=== PATIENT | female | born 1940 ===

== ENCOUNTER 2020-11-21 15:43 | Emergency (ER) | payer MEDICARE ==
[~2020-11-21] VITALS: Ht 160 cm; Wt 113.6 kg
[2020-11-21] MEDS ORDERED: ALBU83IN NEB (15:57)
[2020-11-21] MEDS ORDERED: GLIM1TAB4 PO (15:57)
[2020-11-21] MEDS ORDERED: AZIT-12 PO (15:57)
[2020-11-21] MEDS ORDERED: [UNRECOGNIZED DRUG - CODE] PO (15:57)
--- NOTE | 2020-11-21 16:31 | REP ---
INDICATION: Coronavirus workup. COMPARISON: No comparison study. TECHNIQUE: Portable upright AP chest radiograph. FINDINGS: The patient is rotated slightly to the right. Monitoring electrodes are seen. The heart is not enlarged. The aorta is calcific and slightly tortuous. Pulmonary vasculature is not increased. No infiltrate is seen. Pleural angles are sharp. No acute bony abnormality.. IMPRESSION: No active disease. <Electronically signed by Eloy Tracy > 11/21/20 [id number]
[2020-11-21 16:48] LABS: BASO % 0.4 % (0.0-1.0); EOS % 0.4 % (0.0-3.0); HEMATOCRIT 37.5 % (36.0-47.0); HEMOGLOBIN 11.9 g/dl (12.0-15.5); LYMPH % 21.6 % (24.0-44.0); MEAN CORPUSCULAR HEMOGLOBIN 28.7 pg (27.0-33.0); MEAN CORPUSCULAR HGB CONC 31.7 g/dl (32.0-36.5); MEAN CORPUSCULAR VOLUME 90.6 fl (80.0-96.0); MONO # 0.6 10^3/uL (0.0-0.8); MONO % 11.9 % (2.0-8.0); NEUTROPHILS # 3.1 10^3/uL (1.5-8.5); NEUTROPHILS % 64.5 % (36.0-66.0); PLATELET COUNT, AUTOMATED 162 10^3/uL (150-450); RED BLOOD COUNT 4.14 10^6/uL (4.00-5.40); WHITE BLOOD COUNT 4.8 10^3/uL (4.0-10.0)
[2020-11-21] MEDS ORDERED: oxygen (16:51)
[2020-11-21] MEDS ORDERED: NS 1,000 ML IV SCH (17:10)
[2020-11-21 17:11] LABS: INR 0.98; PROTHROMBIN TIME 13.2 SECONDS (12.5-14.3)
[2020-11-21 17:12] LABS: PARTIAL THROMBOPLASTIN TIME 26.4 SECONDS (24.2-38.5)
[2020-11-21 17:15] LABS: D-DIMER QUANT 1087.65 ng/ml (<500)
[2020-11-21] MEDS ORDERED: methylPREDNISolone 40MG 1ML VIAL IV ONE (17:15)
[2020-11-21] MEDS ORDERED: methylPREDNISolone 125MG 2ML VIAL IV PRN (17:15)
[2020-11-21] MEDS ORDERED: ALBUTEROL 90 MCG/ACT 8GM HFA INHALER INH PRN (17:15)
[2020-11-21] MEDS ORDERED: BAMLANIVIMAB 700 MG in NS 250 ML IV ONE (17:15)
[2020-11-21] MEDS ORDERED: ALBUTEROL SULFATE 2.5 MG/0.5 ML INH NEB SOLN INH PRN (17:15)
[2020-11-21] MEDS ORDERED: ACETAMINOPHEN TAB 650MG DOSE (2X325MG) PO ONE (17:15)
[2020-11-21] MEDS ORDERED: diphenhydrAMINE 50MG CAP PO ONE (17:15)
[2020-11-21] MEDS ORDERED: EPINEPHrine INJ 1 MG/ML 1ML AMP IM PRN (17:15)
[2020-11-21] MEDS ORDERED: diphenhydrAMINE 50MG/ML VIAL (J1200) IV PRN (17:15)
--- NOTE | 2020-11-21 17:28 | HPE ---
HISTORY AND PHYSICAL DATE OF ADMISSION: 11/21/2020 PRINCIPAL DIAGNOSIS: Monoclonal antibody therapy for positive COVID. HISTORY OF PRESENT ILLNESS: Danni Anderson was diagnosed with COVID three days ago, became short of breath today, and came to the emergency room. She is not hypoxemic. She does desaturate with exertion. She is refusing hospitalization. She is consenting to monoclonal antibody therapy. Her risk factors are age, hypertension, diabetes, and obesity with BMI of 44. HOME MEDICATIONS: 1. Albuterol inhaler. 2. Amlodipine/valsartan/hydrochlorothiazide combination one daily. 3. Azithromycin 250 mg daily. 4. Glimepiride 1 mg daily. ALLERGIES: None known. SOCIAL HISTORY: . Nonsmoker. REVIEW OF SYSTEMS: No hemoptysis, fever, chills, polyuria, or polydipsia. PHYSICAL EXAMINATION: VITAL SIGNS: Per flow sheet. GENERAL: Resting comfortably in no distress. HEENT: Unremarkable. NECK: Thyroid nonpalpable. LUNGS: Clear. HEART: Regular rhythm without murmur. ABDOMEN: Obese and nontender with no masses. EXTREMITIES: Trace peripheral edema. LABORATORY DATA: CBC with white count 4.8, hemoglobin 11.9, platelets 162,000. Electrolytes were all pending. IMAGING DATA: Chest x-ray with no active disease. MICROBIOLOGY: Blood cultures pending. IMPRESSION AND PLAN: 1. She has consented to monoclonal antibodies. I have ordered them per protocol. She can be discharged afterwards. She meets criteria and is not hypoxemic at rest or requiring oxygen therapy. 2. Diabetes. Consistent carbohydrate diet ordered. She can continue her medications in the morning. 3. Hypertension. Continue current medicines in the morning.
[2020-11-21 17:30] VITALS: BP 124/71
[2020-11-21 17:43] LABS: ALBUMIN 3.3 GM/DL (3.2-5.2); ALT/SGPT 24 U/L (12-78); BILIRUBIN,TOTAL 0.4 MG/DL (0.2-1.0); BLOOD UREA NITROGEN 20 MG/DL (7-18); C REACTIVE PROTEIN QUANTITATIV 4.31 MG/DL (0.00-0.30); CALCIUM LEVEL 8.1 MG/DL (8.8-10.2); CARBON DIOXIDE LEVEL 26 MEQ/L (21-32); CHLORIDE LEVEL 104 MEQ/L (98-107); CK-MB VALUE MASS < 1.0 NG/ML (<3.6); CPK CREATINE PHOSPHOKINASE 149 U/L (26-192); FERRITIN 345 NG/ML (8-252); GLOMERULAR FILTRATION RATE > 60.0 (>39); GLUCOSE, FASTING 120 MG/DL (70-100); LDH LACTATE DEHYDROGENASE 328 U/L (84-246); MAGNESIUM LEVEL 1.8 MG/DL (1.8-2.4); MB/CK RELATIVE INDEX 0.67 (< OR =4); POTASSIUM SERUM 3.7 MEQ/L (3.5-5.1); SODIUM LEVEL 139 MEQ/L (136-145); TOTAL PROTEIN 6.7 GM/DL (6.4-8.2); TROPONIN I < 0.02 NG/ML (< 0.10)
--- NOTE | 2020-11-22 20:46 | ECGEPIP ---
[facility] - ED Test Date: 2020-11-21 Pat Name: ROSALIO HUS Department: Room: - Gender: Female Emt I/85: : 1940 Requested By: Valentina Jordan Order Number: [id number] Reading MD: Valentina Jordan Measurements Intervals [place] Rate: 95 P: 46 AR: 136 QRS: 5 QRSD: 88 T: 35 QT: 370 QTc: 464 Interpretive Statements Normal sinus rhythm No prior Electronically Signed on 11-22-2020 20:45:45 EST by Valentina Jordan
== END 2020-11-21 19:21 | disposition home or self-care (01) ==
LOC: M ED 15:43
DX: U07.1 COVID-19 (principal); E11.9 Type 2 diabetes mellitus without complications; I10 Essential (primary) hypertension; Z79.899 Other long term (current) drug therapy; Z79.84 Long term (current) use of oral hypoglycemic drugs